=== PATIENT | female | born 1995 | race Caucasian/White ===

== ENCOUNTER → 2019-12-07 14:35 | Observation (INO) ==
[2019-12-07 13:31] LABS: Bilirubin,Urine Negative (Negative); Blood,Urine Negative (Negative); Clarity,Urine Cloudy (Clear); Color,Urine Yellow (Yellow); Glucose,Urine (UA) Normal (Normal); Ketones,Urine Trace mg/dL (Negative); Leukocyte Esterase,Urine Small (Negative); Nitrite,Urine Negative (Negative); Protein,Urine Negative (Neg-Trace); Specific Gravity,Urine 1.028 (1.010-1.025); Urobilinogen,Urine Normal (Normal)
[2019-12-07 13:33] LABS: Bacteria,Urine Few per hpf (None-Few); Hyaline Casts,Urine None Seen per lpf (None-Few); RBC,Urine 0-3 per hpf (0-3); Squamous Epithelial Cell,Urine Many per lpf (None-Few)
== END | disposition home or self-care (01) ==
LOC: 1NENULAB
PROVIDERS: ADMIT Obstetrics & Gynecology; ATTEND Obstetrics & Gynecology

== ENCOUNTER → 2020-01-20 20:31 | Observation (INO) ==
[2020-01-20 19:53] LABS: Bilirubin,Urine Negative (Negative); Blood,Urine Negative (Negative); Clarity,Urine Clear (Clear); Color,Urine Colorless (Yellow); Glucose,Urine (UA) Normal (Normal); Ketones,Urine Negative (Negative); Leukocyte Esterase,Urine Negative (Negative); Nitrite,Urine Negative (Negative); PH,Urine 6.5 pH Units (5.0-8.0); Protein,Urine Negative (Neg-Trace); Specific Gravity,Urine 1.005 (1.010-1.025); Urobilinogen,Urine Normal (Normal)
[2020-01-20 21:21] LABS: Candida DNA Not Detected (Not Detect); Gardnerella DNA Not Detected (Not Detect); Trichomonas DNA Not Detected (Not Detect)
== END | disposition home or self-care (01) ==
LOC: 1NENULAB
PROVIDERS: ADMIT Obstetrics & Gynecology; ATTEND Obstetrics & Gynecology

== ENCOUNTER 2020-01-26 06:00 | Inpatient (IN) ==
[2020-01-26] MEDS ORDERED: Lidocaine 1% 20 ML MDV ID PRN (06:20)
[2020-01-26] MEDS ORDERED: Metoclopramide 10 MG/2 ML VIAL IVP PRN (06:20)
[2020-01-26] MEDS ORDERED: Naloxone 0.4 MG/ML INJ IVP PRN (06:20)
[2020-01-26] MEDS ORDERED: Famotidine 20 MG/2 ML VIAL IVP PRN (06:20)
[2020-01-26] MEDS ORDERED: Ondansetron 4 MG/2 ML VIAL IVP PRN (06:20)
[2020-01-26] MEDS ORDERED: *HR* FentaNYL (PF) 100 MCG/2 ML VIAL IVP PRN (06:20)
[2020-01-26] MEDS ORDERED: miSOPROStoL 25 MCG TABLET PO PRN (06:28)
[2020-01-26] MEDS ORDERED: D5% in 0.45% NACL 1,000 ML IVC SCH (06:30)
[2020-01-26 06:43] LABS: Basophils % 0.2 %; Eosinophils # 0.1 K/mcL (0.0-0.6); Eosinophils % 0.6 %; Hematocrit 37.6 % (35.3-44.9); Hemoglobin 12.2 g/dL (11.5-15.4); Immature Granulocytes % 0.7 % (0-4); Mean Corpuscular HGB Conc 32.4 g/dL (31.6-35.5); Mean Corpuscular Hemoglobin 29.7 pg (28.0-33.3); Mean Corpuscular Volume 91.5 fL (83.0-100.0); Monocytes # 0.7 K/mcL (0.0-1.3); Monocytes % 7.1 %; Neutrophils # 7.6 K/mcL (1.6-8.9); Platelet Count 131 K/mcL (140-400); Red Blood Count 4.11 M/mcL (3.82-4.97); Red Cell Distribution Width 13.4 % (11.5-14.5); Segmented Neutrophils % 72.4 %; White Blood Count 10.4 K/mcL (4.3-11.1)
[2020-01-26] MEDS: Vancomycin 2,000 MG/520 ML IV.SOLN IVPB SCH ×3 (06:59→23:34)
[2020-01-26] MEDS ORDERED: Ringers Solution, Lactated 1,000 ML ONE ×3 (07:16→19:35)
[2020-01-26 08:29] LABS: Amphetamine Screen,Urine Negative ng/mL (Cutoff=1000); Barbiturate Screen,Urine Negative ng/mL (Cutoff=200); Benzodiazepines Screen,Urine Negative ng/mL (Cutoff=200); Cannabinoid Screen,Urine Negative ng/mL (Cutoff = 50); Cocaine Screen,Urine Negative ng/mL (Cutoff= 300); Opiate Screen,Urine Negative ng/mL (Cutoff=300); Phencyclidine Screen,Urine Negative ng/mL (Cutoff=25)
[2020-01-26] MEDS ORDERED: Oxytocin 20 units/ LR 1000 mL 20 UNIT/1,000 ML BAG IVC SCH (12:15)
[2020-01-26] MEDS ORDERED: EPHEDrine 50 MG/ML VIAL IVP PRN (13:54)
[2020-01-26] MEDS ORDERED: Epidural Premix (fent/bupiv) 110 ML EP SCH (14:00)
[2020-01-26] MEDS ORDERED: Ropivacaine/PF 0.2% 20 ML VIAL ONE (19:17)
[2020-01-26] MEDS ORDERED: EPINEPHrine 1 MG/ML VIAL ONE (19:47)
[2020-01-27] MEDS ORDERED: Ringers Solution, Lactated 1,000 ML ONE ×3 (00:09→04:21)
[2020-01-27] MEDS ORDERED: Azithromycin 500 MG in 0.9 % Sodium Chloride 250 ML IVPB ONE (03:07)
[2020-01-27] MEDS ORDERED: MetroNIDAZOLE 500 MG/100 ML 500 MG/100 ML BAG IVPB ONE (03:13)
[2020-01-27] MEDS ORDERED: Lidocaine/EPI 1:200k 2% PF 20 ML VIAL ONE ×2 (03:22→03:46)
[2020-01-27] MEDS ORDERED: *HR* Oxytocin 10 UNIT/ML VIAL IM ONE ×2 (03:27→04:22)
[2020-01-27] MEDS ORDERED: Dexamethasone 4 MG/ML VIAL ONE (03:32)
[2020-01-27] MEDS ORDERED: Ondansetron 4 MG/2 ML VIAL ONE (03:32)
[2020-01-27] MEDS ORDERED: Acetaminophen IV 1,000 MG/100 ML BAG ONE (03:32)
[2020-01-27] MEDS ORDERED: Ketorolac 30 MG/ML VIAL ONE (03:32)
[2020-01-27] MEDS ORDERED: Ketamine *HR* 500 MG/10 ML MDV ONE (03:45)
[2020-01-27] MEDS ORDERED: *HR* Morphine Sulfate/PF 10 MG/10 ML AMPUL ONE (03:58)
[2020-01-27] MEDS ORDERED: Measles/Mumps/Rubella Vacc 0.5 ML VIAL SQ ONE (08:03)
[2020-01-27] MEDS ORDERED: Sennosides 8.6 MG TABLET PO PRN (08:03)
[2020-01-27] MEDS ORDERED: Ondansetron 4 MG/2 ML VIAL IVP PRN (08:03)
[2020-01-27] MEDS ORDERED: Oxytocin 20 units/ LR 1000 mL 20 UNIT/1,000 ML BAG IVC SCH (08:03)
[2020-01-27] MEDS ORDERED: Metoclopramide 10 MG/2 ML VIAL IVP PRN (08:03)
[2020-01-27] MEDS ORDERED: Simethicone 80 MG TAB.CHEW PO PRN (08:03)
[2020-01-27] MEDS: metroNIDAZOLE 500 MG TABLET PO SCH ×3 (10:24→22:05)
[2020-01-27] MEDS: Prenatal Vit/FA 1 EACH TABLET PO SCH (10:24)
[2020-01-27] MEDS: Acetaminophen 325 MG TABLET PO SCH ×3 (10:24→23:32)
[2020-01-27] MEDS: Ibuprofen 600 MG TABLET PO SCH ×2 (11:58→22:06)
[2020-01-28] MEDS: *HR* OxyCODONE Immed Rel 5 MG TABLET PO PRN ×2 (06:31→23:56)
[2020-01-28] MEDS: Acetaminophen 325 MG TABLET PO SCH ×2 (06:32→12:37)
[2020-01-28] MEDS: Prenatal Vit/FA 1 EACH TABLET PO SCH (07:41)
[2020-01-28] MEDS: metroNIDAZOLE 500 MG TABLET PO SCH ×3 (07:41→20:53)
[2020-01-28] MEDS: Ibuprofen 600 MG TABLET PO SCH ×3 (07:42→20:54)
[2020-01-28 08:04] LABS: Basophils % 0.3 %; Eosinophils # 0.1 K/mcL (0.0-0.6); Eosinophils % 0.6 %; Hemoglobin 9.5 g/dL (11.5-15.4); Immature Granulocytes % 0.6 % (0-4); Lymphocytes # 2.6 K/mcL (0.6-4.6); Lymphocytes % 18.1 %; Mean Corpuscular HGB Conc 31.7 g/dL (31.6-35.5); Mean Corpuscular Hemoglobin 30.3 pg (28.0-33.3); Mean Corpuscular Volume 95.5 fL (83.0-100.0); Mean Platelet Volume 10.2 fL (9.4-12.4); Monocytes % 6.8 %; Platelet Count 137 K/mcL (140-400); Red Blood Count 3.14 M/mcL (3.82-4.97); Red Cell Distribution Width 13.6 % (11.5-14.5); Segmented Neutrophils % 73.6 %; White Blood Count 14.6 K/mcL (4.3-11.1)
[2020-01-28 08:15] LABS: Neutrophils # 10.8 K/mcL (1.6-8.9)
[2020-01-29] MEDS: Acetaminophen 325 MG TABLET PO SCH (02:26)
[2020-01-29] MEDS: Ibuprofen 600 MG TABLET PO SCH (07:00)
[2020-01-29 08:12] VITALS: BP 125/84
[2020-01-29] MEDS: Prenatal Vit/FA 1 EACH TABLET PO SCH (09:35)
== END 2020-01-29 12:45 | disposition home or self-care (01) | DRG 540 ==
LOC: 1NENULAB 06:07 → 1NENUOBS 01-27 08:00
PROVIDERS: ADMIT Obstetrics & Gynecology; ATTEND Obstetrics & Gynecology